=== PATIENT | female | born 1995 | race Caucasian/White ===

== ENCOUNTER 2024-08-17 12:51 | Inpatient (IN) | payer MEDICAID, OTHER ==
[2024-08-18 18:54] VITALS: BMI 36.8
[2024-08-18] MEDS ORDERED: Misoprostol 200 MCG TAB PR PRN (19:53)
[2024-08-18] MEDS ORDERED: Lidocaine 1% (PF) 30 ML VIAL SC PRN (19:53)
[2024-08-18] MEDS ORDERED: Carboprost 250 MCG/ML AMP IM PRN (19:53)
[2024-08-18] MEDS ORDERED: hydrALAZINE 20 MG/ML VIAL SLOW IVP PRN (19:53)
[2024-08-18] MEDS ORDERED: Acetaminophen 500 MG TAB PO PRN (19:53)
[2024-08-18] MEDS ORDERED: Tranexamic Acid 1,000 MG/10 ML VIAL IVP PRN (19:53)
[2024-08-18] MEDS ORDERED: Methylergonovine 0.2 MG/ML VIAL IM PRN (19:53)
[2024-08-18] MEDS ORDERED: Diphenoxylate HCl/Atropine Tablet PO PRN (19:53)
[2024-08-18] MEDS ORDERED: Promethazine HCl 25 MG/ML VIAL IM PRN (19:53)
[2024-08-18] MEDS ORDERED: Oxytocin 30 units/NS 500 ML 500 ML IV SCH ×2 (20:00)
[2024-08-18] MEDS ORDERED: Ibuprofen 800 MG TAB PO PRN (20:03)
[2024-08-18] MEDS ORDERED: HYDROcodone/Acetaminophen 5/325 mg Tablet PO PRN (20:03)
[2024-08-18 20:34] LABS: Hematocrit 39.4 % (34.9-44.5); Hemoglobin 13.4 g/dL (12.0-15.5); Mean Corpuscular Hemoglobin 32.6 pg (27.0-33.0); Mean Corpuscular Volume 95.9 fL (81.6-98.3); Mean Platelet Volume 13.6 fL (7.4-10.4); Platelet Count 146 10x3/uL (150-450); RBC Distribution Width 13.2 % (11.5-14.5); Red Blood Cell (RBC) Count 4.11 10x6/uL (3.90-5.03)
[2024-08-18 20:45] LABS: ALT (SGPT) 7 U/L (8-55); AST (SGOT) 10 U/L (5-34); Albumin 2.9 g/dL (3.5-5.0); Alkaline Phosphatase 89 U/L (40-110); Anion Gap 14 mmol/L (10-20); BUN (Urea Nitrogen) 7 mg/dL (7.0-18.7); Bilirubin, Total 0.3 mg/dL (0.2-1.2); Calc. Creatinine Clearance 204 mL/min (70-130); Calcium 8.6 mg/dL (7.8-10.44); Carbon Dioxide 18 mmol/L (22-29); Chloride 107 mmol/L (98-107); Estimated GFR 119; Glucose 118 mg/dL (70-105); Potassium 3.7 mmol/L (3.5-5.1); Protein, Total 5.9 g/dL (6.0-8.3); Sodium 135 mmol/L (136-145)
[2024-08-18] MEDS: Lactated Ringer's 1,000 ML IV SCH (21:00)
[2024-08-18 23:23] LABS: Syphilis Antibody Nonreactive (Nonreactive); Syphilis Antibody Index 0.06 S/CO (<1.00 Non-Reactive)
[2024-08-18 23:27] LABS: HBsAg Index 0.24 S/CO (0-0.99); Hep B Surf Ag - L&D Non-Reactive S/CO (NonReactive)
[2024-08-19] MEDS: Penicillin G Potassium 5 MILL.UNITS in Sodium Chloride 0.9% 100 ML IVPB SCH (05:33)
[2024-08-19] MEDS: Lactated Ringer's 1,000 ML IV SCH (05:42)
[2024-08-19] MEDS: Ondansetron PF 4 MG/2 ML Vial IVP PRN ×2 (06:12→08:59)
[2024-08-19] MEDS: fentaNYL 50 mcg/mL 1 mL Vial SLOW IVP PRN ×2 (06:36→21:49)
[2024-08-19] MEDS: Penicillin G 2.5 MILL.units 2.5 MILL.UNITS in Premix 1 BAG IVPB SCH (06:41)
[2024-08-19] MEDS: Penicillin G Potassium 5 MILL.UNITS VIAL ONE (06:42)
[2024-08-19] MEDS: fentaNYL 2 mcg/Ropivacaine 0.2% Epidural 100 ML CADD EPIDURAL SCH (07:36)
[2024-08-19] MEDS ORDERED: Naloxone HCl 0.4 mg/ml Vial IVP PRN ×4 (07:37→20:54)
[2024-08-19] MEDS ORDERED: Promethazine HCl 25 MG/ML VIAL IM PRN ×3 (07:37→22:50)
[2024-08-19] MEDS ORDERED: Lactated Ringer's 500 ML IV PRN (07:37)
[2024-08-19] MEDS ORDERED: Moisturizing Cream (Eucerin) 113 GM JAR TOP PRN ×2 (07:37→20:54)
[2024-08-19] MEDS ORDERED: diphenhydrAMINE 50 MG/ML VIAL IVP PRN ×2 (07:37→20:54)
[2024-08-19] MEDS ORDERED: Communication Order-Pharmacy FS SCH ×2 (07:45→21:00)
[2024-08-19] MEDS ORDERED: Acetaminophen 500 MG TAB PO PRN (07:54)
[2024-08-19] MEDS: Acetaminophen 325 MG TAB PO PRN (07:54)
[2024-08-19 08:00] LABS: HIV (1/2) Antibody/Antigen Non-Reactive (NonReactive); HIV 1/2 INDEX 0.12 S/CO (<1.00)
[2024-08-19] MEDS: ePHEDrine Sulfate 50 MG/10 ML VIAL SLOW IVP PRN (08:11)
[2024-08-19] MEDS: Oxytocin 30 units/NS 500 ML 500 ML IV SCH (10:24)
[2024-08-19] MEDS: Ondansetron PF 4 MG/2 ML Vial IVP SCH (14:58)
[2024-08-19] MEDS ORDERED: Naloxone HCl 0.4 mg/ml Vial IV PRN (20:54)
[2024-08-19] MEDS ORDERED: Meperidine HCl/PF 25 MG (1 mL) VIAL SLOW IVP PRN (20:54)
[2024-08-19] MEDS ORDERED: Ondansetron PF 4 MG/2 ML Vial IVP PRN ×3 (20:54→22:50)
[2024-08-19] MEDS: Ketorolac Tromethamine 30 MG (1 mL) VIAL IVP SCH (21:41)
[2024-08-19] MEDS ORDERED: Boostrix 0.5 ML (Tdap) VIAL (>/=7 yrs of age) IM ONE (22:50)
[2024-08-19] MEDS ORDERED: hydrALAZINE 20 MG/ML VIAL SLOW IVP PRN (22:50)
[2024-08-19] MEDS ORDERED: Lanolin Ointment 7 GM TUBE TOP PRN (22:50)
[2024-08-19] MEDS ORDERED: diphenhydrAMINE 25 MG CAP PO PRN (22:50)
[2024-08-19] MEDS ORDERED: Oxytocin 30 units/NS 500 ML 500 ML IV SCH (22:50)
[2024-08-19] MEDS: Azithromycin 500 MG VIAL ONE (23:49)
[2024-08-19] MEDS: Ondansetron PF 4 MG/2 ML Vial ONE ×2 (23:49→23:50)
[2024-08-19] MEDS: CEFAZOLIN 2 GM VIAL ONE (23:49)
[2024-08-19] MEDS: fentaNYL/Ropivacaine Epidural 100 ML ONE (23:49)
[2024-08-19] MEDS: Morphine PF 10 MG/10 ML VIAL ONE (23:50)
[2024-08-19] MEDS: Oxytocin 10 UNITS/ML VIAL ONE (23:50)
[2024-08-19] MEDS: Dexamethasone 10 MG/ML VIAL ONE (23:50)
[2024-08-20] MEDS: Ferrous Sulfate 325 MG TAB PO SCH ×2 (01:10→08:54)
[2024-08-20] MEDS: Docusate 100 MG CAP PO SCH ×2 (01:10→08:50)
[2024-08-20] MEDS: Ketorolac Tromethamine 30 MG (1 mL) VIAL IVP PRN (03:17)
[2024-08-20 05:29] LABS: Hematocrit 32.8 % (34.9-44.5); Hemoglobin 11.2 g/dL (12.0-15.5); Mean Corpuscular HGB CONC 34.5 g/dL (32.0-36.0); Mean Corpuscular Hemoglobin 33.1 pg (27.0-33.0); Mean Corpuscular Volume 96.2 fL (81.6-98.3); Platelet Count 157 10x3/uL (150-450); Red Blood Cell (RBC) Count 3.38 10x6/uL (3.90-5.03); White Blood Cell (WBC) Count 23.4 10x3/uL (3.5-10.5)
[2024-08-20] MEDS: Calcium Carbonate 500 MG ChewTAB PO PRN (06:46)
[2024-08-20] MEDS: Meperidine HCl/PF 25 MG (1 mL) VIAL IM PRN (06:47)
[2024-08-20] MEDS: Simethicone Chewable 80 MG TAB PO PRN (08:50)
[2024-08-20] MEDS: Prenatal Vitamin 1 TAB PO SCH (08:50)
[2024-08-20] MEDS: HYDROcodone/Acetaminophen 5/325 mg Tablet PO PRN ×2 (10:29→14:39)
[2024-08-20] MEDS: Ibuprofen 800 MG TAB PO SCH (22:05)
[2024-08-21] MEDS ORDERED: Ibuprofen 800 MG TAB PO SCH (06:00)
[2024-08-21] MEDS: Milk Of Magnesia 30 ML UDCUP PO PRN (09:46)
[2024-08-21] MEDS: Bisacodyl 10 MG SUPP PR PRN (18:40)
[2024-08-23] MEDS: NIFEdipine XL 30 MG ER.TAB PO SCH ×2 (00:12→08:33)
[2024-08-23] MEDS: cloNIDine 0.1 MG TAB PO PRN (11:56)
[2024-08-23 18:35] VITALS: TEMP 98.1
[2024-08-23 18:36] VITALS: BP 136/82
== END 2024-08-23 15:20 | disposition home or self-care (01) | DRG 788 ==
LOC: CSHLD 08-18 18:06 → CSHPP 08-19 22:57
PROVIDERS: ADMIT Family Medicine; ATTEND Family Medicine
PROC: 10D00Z1 Extraction of Products of Conception, Low, Open Approach (ICD-10-PCS; principal; 2024-08-20)
PROC: 0U910ZZ Drainage of Left Ovary, Open Approach (ICD-10-PCS; 2024-08-20)
DX: O24.429 Gestational diabetes mellitus in childbirth, unspecified control (principal); O99.214 Obesity complicating childbirth; E66.9 Obesity, unspecified; Z3A.40 40 weeks gestation of pregnancy; Z37.0 Single live birth; Z79.82 Long term (current) use of aspirin; Z79.899 Other long term (current) drug therapy; O99.824 Streptococcus B carrier state complicating childbirth; O76 Abnormality in fetal heart rate and rhythm complicating labor and delivery; O34.83 Maternal care for other abnormalities of pelvic organs, third trimester; N83.202 Unspecified ovarian cyst, left side
CPT/HCPCS: 36415; 36416; 51702; 80053; 85027; 86780; 86850; 86900; 86901; 87340; 87389; J1100; J1885; J2175; J2274; J2405; J2540; J2590; J2765; J3010; J7120